=== PATIENT | female | born 1950 ===

== ENCOUNTER → 2024-08-11 07:43 | Outpatient (REF) | payer OTHER, SELFPAY | LOC: HWRCS 07:43 | PROVIDERS: ATTENDING PHYSICIAN Internal Medicine Cardiovascular Disease; FAMILY PHYSICIAN Internal Medicine | DX: Z01.810 Encounter for preprocedural cardiovascular examination (principal); E78.5 Hyperlipidemia, unspecified; R55 Syncope and collapse | CPT/HCPCS: 78452; 93017; A9500; J2785 ==